=== PATIENT | female | born 1985 | race American Indian/Alaskan Native ===

== ENCOUNTER 2017-05-10 09:12 | Emergency (ER) | payer MEDICAID ==
[2017-05-10 09:31] VITALS: BP 127/80
--- NOTE | 2017-05-10 11:18 | Emergency Department Report ---
ED ENT HPI - General Chief complaint: Sore Throat Stated complaint: SORE THROAT/STD Time Seen by Provider: 05/10/17 11:13 Source: patient Mode of arrival: Ambulatory Limitations: No Limitations - History of Present Illness complaint: sore throat Onset/Timin -: Sudden, days(s) (2) Location: throat Severity: moderate Severity scale (0 -10): 5 Quality: burning, aching, constant Consistency: constant Improves with: none Worsens with: swallowing, eating Context-Epistaxis: other (none) Associated Symptoms: fever, pain with swallowing, sore throat, rhinorrhea. denies: hearing loss, discharge from ear - Related Data Previous Rx's Medication Instructions Recorded Last Taken Type Amoxicillin [Trimox CAP] 500 mg PO Q8H #30 capsule 05/10/17 Unknown Rx Benzocaine/Menth/Cetylpyrd 8 each MM QID PRN #24 packet 05/10/17 Unknown Rx [Cepacol X Strength] Ibuprofen [Motrin 800 MG tab] 800 mg PO Q8HR PRN #30 tablet 05/10/17 Unknown Rx Allergies Allergy/AdvReac Type Severity Reaction Status Date / Time No Known Allergies Allergy Verified 05/10/17 09:25 ED Dental HPI - General Chief complaint: Sore Throat Stated complaint: SORE THROAT/STD Time Seen by Provider: 05/10/17 11:13 Source: patient Mode of arrival: Ambulatory Limitations: No Limitations - History of Present Illness complaint: sore throat -: Sudden, days(s) (1) Severity: moderate Quality: burning, sharp Consistency: constant Improves with: none Worsens with: swallowing, eating Context- Dental: history of dental caries, poor dental care Dental Associated Symptons: Yes: Sore Throat, Fever. No: Gum Swelling - Related Data Previous Rx's Medication Instructions Recorded Last Taken Type Amoxicillin [Trimox CAP] 500 mg PO Q8H #30 capsule 05/10/17 Unknown Rx Benzocaine/Menth/Cetylpyrd 8 each MM QID PRN #24 packet 05/10/17 Unknown Rx [Cepacol X Strength] Ibuprofen [Motrin 800 MG tab] 800 mg PO Q8HR PRN #30 tablet 05/10/17 Unknown Rx Allergies Allergy/AdvReac Type Severity Reaction Status Date / Time No Known Allergies Allergy Verified 06/09/17 09:25 ED Review of Systems ROS: Stated complaint: SORE THROAT/STD Other details as noted in HPI Constitutional: denies: chills, fever Eyes: denies: eye pain, eye discharge, vision change ENT: throat pain Respiratory: denies: cough, shortness of breath, wheezing Cardiovascular: denies: chest pain, palpitations Endocrine: no symptoms reported Gastrointestinal: denies: abdominal pain, nausea, diarrhea Genitourinary: denies: urgency, dysuria, discharge Musculoskeletal: denies: back pain, joint swelling, arthralgia Skin: denies: rash, lesions Neurological: denies: headache, weakness, paresthesias Psychiatric: denies: anxiety, depression Hematological/Lymphatic: denies: easy bleeding, easy bruising ED Past Medical Hx - Past Medical History Previous Medical History?: No Additional medical history: Vaginal delivery 03-29-2003. obesity - Surgical History Past Surgical History?: No - Social History Smoking Status: Current Every Day Smoker Substance Use Type: None - Medications Home Medications: Home Medications Medication Instructions Recorded Confirmed Last Taken Type Amoxicillin [Trimox CAP] 500 mg PO Q8H #30 capsule 05/10/17 Unknown Rx Benzocaine/Menth/Cetylpyrd 8 each MM QID PRN #24 packet 05/10/17 Unknown Rx [Cepacol X Strength] Ibuprofen [Motrin 800 MG tab] 800 mg PO Q8HR PRN #30 tablet 05/10/17 Unknown Rx ED Physical Exam - General Limitations: No Limitations General appearance: alert, in no apparent distress - Head Head exam: Present: atraumatic, normocephalic - Eye Eye exam: Present: normal appearance - Expanded ENT Exam Expanded Mouth exam: Absent: trismus, muffled voice Teeth exam: Present: normal inspection Throat exam: Positive: tonsillar erythema, tonsillomegaly, tonsillar exudate. Negative: R peritonsillar mass, L peritonsillar mass - Neck Neck exam: Present: normal inspection - Respiratory Respiratory exam: Present: normal lung sounds bilaterally. Absent: respiratory distress - Cardiovascular Cardiovascular Exam: Present: regular rate, normal rhythm. Absent: systolic murmur, diastolic murmur, rubs, gallop - GI/Abdominal GI/Abdominal exam: Present: soft, normal bowel sounds - Rectal Rectal exam: Present: deferred - External exam: Present: other (deferred ) - Extremities Exam Extremities exam: Present: normal inspection - Back Exam Back exam: Present: normal inspection - Neurological Exam Neurological exam: Present: alert, oriented X3 - Psychiatric Psychiatric exam: Present: normal affect, normal mood - Skin Skin exam: Present: warm, dry, intact, normal color. Absent: rash ED Course Vital Signs 05/10/17 09:27 Temperature 99.8 F H Pulse Rate 92 H Respiratory 17 Rate Blood Pressure 127/80 O2 Sat by Pulse 100 Oximetry ED Medical Decision Making - Medical Decision Making pt presents for sore throat x 2 days exam, tms mild erythema pain to movement nose bilat turbinate erythema no polyps no obstruction clear post nasal drip sinus:bilat maxillary tenderness to palpation , pharynx: moderate erythema bilat tonsilarmegally, no lesions white yellow exudate no tonsilar abscess uvula midline airway is patent Critical care attestation.: If time is entered above; I have spent that time in minutes in the direct care of this critically ill patient, excluding procedure time. ED Disposition Clinical Impression: Strep throat Disposition: - TO HOME OR SELFCARE Is pt being admited?: No Does the pt Need Aspirin: No Condition: Good Instructions: Strep Throat (ED) Prescriptions: Amoxicillin [Trimox CAP] 500 mg PO Q8H #30 capsule Benzocaine/Menth/Cetylpyrd [Cepacol X Strength] 8 each MM QID PRN #24 packet PRN Reason: Pain Ibuprofen [Motrin 800 MG tab] 800 mg PO Q8HR PRN #30 tablet PRN Reason: Pain Referrals: PRIMARY CARE, [Primary Care Provider] - 3-5 Days Forms: Work/School Release Form(ED) Time of Disposition: 11:24
== END 2017-05-10 11:48 | disposition home or self-care (01) ==
LOC: ED 09:12
DX: J02.0 Streptococcal pharyngitis (principal); R09.89 Other specified symptoms and signs involving the circulatory and respiratory systems; F17.200 Nicotine dependence, unspecified, uncomplicated
CPT/HCPCS: 87116; 87430; 99282